=== PATIENT | male | born 1975 | race Caucasian/White ===

== ENCOUNTER → 2020-07-15 | Outpatient (CLI) | payer OTHER ==
[~2020-07-15] MED LIST: IBUPROFEN600 MG PO
== END ==
LOC: KOH-I 09:16
DX: M54.2 Cervicalgia (principal); M47.812 Spondylosis without myelopathy or radiculopathy, cervical region
CPT/HCPCS: 72040

== ENCOUNTER 2021-07-29 15:50 | Emergency (ER) | payer OTHER | END 2021-07-29 18:58 | disposition home or self-care (01) | LOC: ER1 15:50 | DX: S71.111A Laceration without foreign body, right thigh, initial encounter (principal); Z88.0 Allergy status to penicillin; W26.8XXA Contact with other sharp object(s), not elsewhere classified, initial encounter | CPT/HCPCS: 12001; 73552; 99283 ==